=== PATIENT | male | born 1970 | race Caucasian/White ===

== ENCOUNTER 2019-04-07 23:54 | Emergency (ER) | payer BC, OTHER ==
[~2019-04-07] VITALS: Ht 175.3 cm; Wt 140.9 kg
--- NOTE | 2019-04-07 23:57 | NUR ---
PT BIB EMS FROM [facility] WITH C/O CHEST PAIN RADIATING TO R ARM. PT RECEIVED ASPRIN, 100ML NS, AND EKG. PT DENIES ANY OTHER SYMPTOMS. PT REPORTS ETOH USE OF APPX 1L FIREBALL TODAY. EMS REPORTS PT HAD SYNCOPAL EPISODES DURING PICKUP AND TRANSPORT, REPORTS PT EASILY AROUSABLE. PT CURRENTLY TALKATIVE. LAB IN ROOM AT THIS TIME. PT CONNECTED TO SPO2, CARD MONITOR AND BP. REPEAT EKG PERFORMED. CALL LIGHT WITHIN REACH. SAFETY MEASURES IN PLACE.
[2019-04-08 00:08] LABS: BASOPHILS # (AUTO) 0.06 x10^3/uL (0-0.1); BASOPHILS % (AUTO) 1 % (0-1); EOSINOPHILS # (AUTO) 0.48 x10^3/uL (0-0.4); EOSINOPHILS % (AUTO) 5 % (1-7); LYMPHOCYTES # (AUTO) 2.99 x10^3/uL (1-3.4); LYMPHOCYTES % (AUTO) 30 % (22-44); MD NO; MEAN CORPUSCULAR HEMOGLOBIN 32.1 pg (27.5-34.5); MEAN CORPUSCULAR HGB CONC 33.3 g/dL (33.2-36.2); MEAN CORPUSCULAR VOLUME 96.4 fL (81-97); MEAN PLATELET VOLUME 7.7 fL (7.4-10.4); MONOCYTES # (AUTO) 1.06 x10^3/uL (0.2-0.8); MONOCYTES % (AUTO) 11 % (2-9); NEUTROPHILS # (AUTO) 5.52 x10^3/uL (1.8-6.8); NEUTROPHILS % (AUTO) 55 % (42-75); PLATELET COUNT 334 x10^3/uL (130-400); RED BLOOD COUNT 4.82 x10^6/uL (4.38-5.82); RED CELL DISTRIBUTION WIDTH 15.7 % (9.4-14.8)
[2019-04-08] MEDS ORDERED: MAALOX/HYOSCYAMINE/LIDOCAINE 45 ML BTL ONE (00:56)
--- NOTE | 2019-04-08 00:57 | NUR ---
break RN: pt in cta at this time. pt given another gown as he was sitting on edge of bed in underwear because he was hot. will continue to monitor.
[2019-04-08] MEDS ORDERED: MAALOX/HYOSCYAMINE/LIDOCAINE 45 ML BTL PO ONE (01:00)
[2019-04-08] MEDS ORDERED: MORPHINE SULFATE 4 MG/ML, 1ML ONE (01:23)
[2019-04-08] MEDS ORDERED: ONDANSETRON 2MG/ML, 2ML ONE (01:23)
[2019-04-08] MEDS ORDERED: SODIUM CHLORIDE FLUSH 10ML SYR IVF ONE ×2 (01:30)
[2019-04-08] MEDS ORDERED: MORPHINE SULFATE 4 MG/ML, 1ML IVPush PRN (01:30)
[2019-04-08] MEDS ORDERED: ONDANSETRON 2MG/ML, 2ML IVPush ONE (01:30)
--- NOTE | 2019-04-08 01:54 | NUR ---
PT MEDICATED FOR PAIN BACK FROM CT AT THIS TIME PLACED ON 4 L O2 NC AT THIS TIME FOR SATS IN 85
[2019-04-08] MEDS ORDERED: NITROGLYCERIN 0.4 MG BOTTLE (25 TABS) SL PRN (02:30)
[2019-04-08] MEDS ORDERED: PANTOPRAZOLE 40 MG IV IVPush SCH (02:30)
[2019-04-08] MEDS ORDERED: DOCUSATE 100 MG CAPSULE PO PRN (02:30)
[2019-04-08] MEDS ORDERED: hydrALAzine 20 MG/ML, 1ML IVPush PRN (02:30)
[2019-04-08] MEDS ORDERED: BISACODYL 10 MG SUPP PR PRN (02:30)
[2019-04-08] MEDS ORDERED: HEPARIN 5,000 UNITS/ML, 1ML SQ SCH (02:30)
[2019-04-08] MEDS ORDERED: ACETAMINOPHEN 325 MG TABLET PO PRN (02:30)
[2019-04-08] MEDS ORDERED: POLYETHYLENE GLYCOL 17 GM PACKET PO PRN (02:30)
[2019-04-08] MEDS ORDERED: morphine SULFATE 10 MG/ML, 1ML IVPush PRN (02:30)
[2019-04-08] MEDS ORDERED: PROMETHAZINE 25 MG/ML, 1ML IM PRN (02:30)
[2019-04-08] MEDS ORDERED: ONDANSETRON ODT 4 MG PO PRN (02:30)
[2019-04-08] MEDS ORDERED: OXYcodone IR 5MG TABLET PO PRN (02:30)
[2019-04-08] MEDS ORDERED: ONDANSETRON 2MG/ML, 2ML IVPush PRN (02:30)
[2019-04-08] MEDS ORDERED: LORazepam 1MG TABLET PO PRN ×4 (03:00)
[2019-04-08] MEDS ORDERED: FUROSEMIDE 20 MG/2 ML IV ONE (03:00)
[2019-04-08] MEDS ORDERED: LORazepam 0.5MG TABLET PO PRN (03:00)
[2019-04-08] MEDS ORDERED: LORazepam 2 MG/ML, 1ML IV PRN ×5 (03:00)
[2019-04-08] MEDS ORDERED: FUROSEMIDE 20 MG/2 ML ONE (03:10)
[2019-04-08] MEDS ORDERED: PANTOPRAZOLE 40 MG IV ONE (03:10)
[2019-04-08] MEDS ORDERED: HEPARIN 5,000 UNITS/ML, 1ML ONE (03:11)
[2019-04-08 03:15] LABS: FREE T4 (FREE THYROXINE) 0.87 ng/dL (0.76-1.46)
[2019-04-08] MEDS ORDERED: OMEP10SU2 PO (03:29)
[2019-04-08] MEDS ORDERED: ATEN50TA41 PO (03:29)
[2019-04-08] MEDS ORDERED: IBUP-1223 PO (03:29)
[2019-04-08] MEDS ORDERED: TESTOSTERONE (03:29)
--- NOTE | 2019-04-08 03:29 | NUR ---
PT MEDICATED PER MAR.
[2019-04-08 03:33] LABS: ANION GAP 4 mmol/L (5-15); CALCIUM 8.3 mg/dL (8.5-10.1); CHLORIDE 115 mmol/L (98-107)
[2019-04-08 03:34] LABS: ALANINE AMINOTRANSFERASE 50 U/L (12-78); ALBUMIN 3.4 g/dL (3.4-5.0); ALKALINE PHOSPHATASE 114 U/L (45-117); BILIRUBIN,TOTAL 0.3 mg/dL (0.2-1.0); CREATININE 0.91 mg/dL (0.7-1.3); TOTAL PROTEIN 7.7 g/dL (6.4-8.2)
[2019-04-08 03:35] LABS: TROPONIN I < 0.015 ng/mL (0.000-0.045)
--- NOTE | 2019-04-08 03:43 | NUR ---
provided pt with incentive spirometer and hospital socks. hospital bed ordered by mechanical unit repairer
[2019-04-08] MEDS ORDERED: OMNIPAQUE 350 MG/ML, 100ML BOTTLE ONE (04:15)
--- NOTE | 2019-04-08 04:20 | NUR ---
PT REQUESTING THAT THIS RN CALL HIS SON AND LET HIM KNOW HE IS AT THE HOSPITAL, STATED HIS SON IS KENNY AND TELEPHONE NUMBER IS [phone], CALLED AND LEFT VOICE MESSAGE PER PT REQUEST
[2019-04-08 04:28] VITALS: BP 114/77
--- NOTE | 2019-04-08 04:29 | NUR ---
PT SITTING UP ON SIDE OF GURNEY, DENIES PAIN OR NEEDS A THIS TIME, MONITORS IN PLACE, CALL LIGHT WITHIN REACH. AWAITING ROOM FOR ADMIT
--- NOTE | 2019-04-08 04:46 | NUR ---
PT'S SON LINDSAY CALLED AT [phone] PER PT REQUEST, NO ANSWER, VOICE MESSAGE LEFT PER PT REQUESST
--- NOTE | 2019-04-08 05:10 | NUR ---
PROVIDED PT WITH HOSPITAL BED, PT RESTING CALMLY, MONITORS IN PLACE, SIDERAILS UP X2, CALL LIGHT WITHIN REACH
--- NOTE | 2019-04-08 05:50 | NUR ---
LATE NOTE: MED ORDERED FROM PHARMACY.
[2019-04-08] MEDS ORDERED: ASPIRIN 325 MG TABLET EC ONE (05:58)
[2019-04-08] MEDS ORDERED: ASPIRIN 325 MG TABLET EC PO SCH (06:00)
[2019-04-08] MEDS ORDERED: ATENOLOL 50 MG TABLET PO SCH (06:00)
--- NOTE | 2019-04-08 06:42 | NUR ---
pharmacy called regarding atenolol dose, pharmacist stated " i'll resend medication now"
--- NOTE | 2019-04-08 07:08 | NUR ---
THIS RN IN TO ASSESS PT. PT STANDING BEDSIDE GETTING DRESSED. PT STATES "I'M LEAVING AMA. THE OTHER PERSON SAID I DIDN'T GET HERE UNTIL 0237. I GOT HERE AT MIDNIGHT. SHE MADE ME LOOK LIKE A FOOL. I'M LEAVING." PT EDUCATED REGARDING LEAVING AMA, INCLUDING . PT VERBALIZED UNDERSTANDING REGARDING ALL AMA EDUCATION. PT STATES "WE ALL GOT TO SOMETIME. I'LL JUST GO TO [place]." GRANDSON BEDSIDE AND STATES "TRUST ME I DON'T WANT HIM TO LEAVE EITHER." PT D/C HIS PIV WITH TIP INTACT. PT REFUSED PRESSURE DRESSING. PT AMBULATORY WITH STEADY GAIT. PT SIGNED AMA FORM. EDUCATED PT'S GRANDSON REGARDING GETTING HIS GRANDFATHER HELP AND MEDICAL ASSISTANCE. GRANDSON VERBALIZED UNDERSTANDING. PT LEFT WITH ALL PERSONAL BELONGINGS.
--- NOTE | 2019-04-08 07:15 | NUR ---
IT WAS PT SON, LINDSAY. LINDSAY IS NOT GRANDSON.
--- NOTE | 2019-04-08 08:26 | NUR ---
LATE ENTRY FOR 704: HOSPITALIST, DR. LAURA, NOTIFIED
[2019-04-08] MEDS ORDERED: FUROSEMIDE 20 MG/2 ML IV SCH (09:00)
== END 2019-04-08 07:28 | disposition left against medical advice (07) ==
LOC: ED 04-08 02:15 → UNDOADMIN 04-08 02:20 → EDIP 04-08 02:20 → ED 04-08 02:31
DX: R07.89 Other chest pain (principal); E03.9 Hypothyroidism, unspecified; I11.0 Hypertensive heart disease with heart failure; I50.9 Heart failure, unspecified; K21.0 Gastro-esophageal reflux disease with esophagitis; F10.120 Alcohol abuse with intoxication, uncomplicated; Y90.0 Blood alcohol level of less than 20 mg/100 ml
CPT/HCPCS: 36415; 71045; 71275; 80053; 80307; 83036; 83735; 83880; 84439; 84443; 84484; 85025; 93005; 96372; 96374; 96375; 99284; C9113; J1644; J1940; J2270; J2405; Q9967